=== PATIENT | male | born 1990 | race Caucasian/White ===

== ENCOUNTER 2021-05-04 15:44 | Inpatient (IN) | payer OTHER, SELFPAY ==
--- NOTE | ~2021-05-04 | CT_ITS ---
EXAMINATION: CT head/brain wo con CLINICAL INFORMATION: Reason for Exam change in vision COMPARISON: CT brain 11/15/2007 TECHNIQUE: Contiguous axial imaging was performed from the skull base to vertex without intravenous contrast. Sagittal and coronal reformatted images were obtained. This CT examination was performed using dose optimization techniques as appropriate, variously including the following: * Automated exposure control * Adjustment of mA and/or kV according to patient size (this includes techniques or standardized protocols for targeted exams where dose is matched to indication/reason for exam; i.e. extremities or head) Use of iterative reconstruction technique DLP: 642 mGy-cm FINDINGS: No acute osseous or soft tissue abnormality. The mastoid air cells and visualized portions of the paranasal sinuses are well aerated. Subcortical focal hypodensity in the right occipital lobe new from prior. No abnormal mass effect or midline shift is seen. Andre to white matter differentiation is well preserved. No extra-axial fluid collections are identified. No hydrocephalus. No significant volume loss. There is no abnormal attenuation within the brain parenchyma. CT/CT head/brain wo con IMPRESSION: Subcortical focal hypodensity in the right occipital lobe new from prior, raising suspicion for ischemic infarct, however recommend MR brain with and without contrast to ensure no discrete underlying focal parenchymal lesion. The findings and recommendations were discussed with Anca Guaman MD by telephone at 05/04/2021 11:01 PM and it was ascertained that the content and urgency of the report was understood at the time of direct communication.
--- NOTE | ~2021-05-04 | MR_ITS ---
MR BRAIN WITHOUT AND WITH CONTRAST CLINICAL INFORMATION: Vision changes. Head CT positive. COMPARISON: Head CT and CTA head and neck 05/04/2021. TECHNIQUE: Multiplanar, multisequence MRI of the brain was obtained before and after the intravenous administration of 8 mL Gadavist. FINDINGS: There is an acute infarct within the right occipital lobe measuring 1.6 cm. There is some gyriform enhancement in this location presumably related to blood brain barrier breakdown should be followed with 6-8 weeks to document resolution. Cytotoxic edema within the infarct results in local cerebral sulcal effacement. There is no hemorrhagic transformation. There is no hydrocephalus, extra-axial surface collection, or herniation. The major flow voids at the skull base are preserved. The midline structures are normal. The cerebellar tonsils are normally positioned. The cerebellum and brainstem are normal. The craniocervical junction is normal. Osseous marrow signal intensity is homogenous. The visualized soft tissues are unremarkable. MR/MR head/brain wo/w con IMPRESSION: There is an acute infarct within the right occipital lobe measuring 1.6 cm. There is some gyriform enhancement in this location presumably related to blood brain barrier breakdown that should be followed with 6-8 weeks to document resolution. Cytotoxic edema within the infarct results in local cerebral sulcal effacement. There is no hemorrhagic transformation.
--- NOTE | ~2021-05-04 | CT_ITS ---
EXAMINATION: CTA OF THE HEAD/NECK CLINICAL INFORMATION: Occipital stroke. COMPARISON: CT from 05/04/2021. TECHNIQUE: A routine non contrast head CT was performed earlier in the evening. This is followed by a 70 mL bolus of Omnipaque 350. Subsequent multidetector helical imaging was performed of the head and neck. Delayed post contrast imaging was also performed through the head. Multiplanar reformats and MIP were also obtained. Internal carotid artery stenoses are assessed in accordance with NASCET criteria unless otherwise indicated. This CT examination was performed using dose optimization techniques as appropriate, variously including the following: *Automated exposure control *Adjustment of mA and/or kV according to patient size (this includes techniques or standardized protocols for targeted exams where dose is matched to indication/reason for exam; i.e. extremities or head) *Use of iterative reconstruction technique DLP: 1493 mGy-cm. FINDINGS: CT HEAD: There is no evidence of acute intracranial hemorrhage. No abnormal mass effect or midline shift is seen. The subtle area of hypoattenuation in the right occipital lobe is again noted as seen on the recent prior noncontrast CT. No extra-axial fluid collections are identified. No suspicious leptomeningeal or parenchymal enhancement on the post-contrast images. No hydrocephalus. No significant volume loss. The osseous structures and soft tissues are normal. The mastoid air cells and visualized portions of the paranasal sinuses are well aerated. CTA NECK: The aortic arch is of normal caliber and the origins of the great vessels are patent without evidence of significant stenosis. 4 vessel branching configuration of the aortic arch with the left vertebral artery originating third from the arch. The cervical portion of the vertebral arteries are patent bilaterally. No luminal irregularities in the common carotid arteries and the carotid bifurcations are patent bilaterally. The cervical portion of the internal carotid arteries are of normal caliber. The laryngeal structures and pharyngeal mucosal spaces are unremarkable. The oral cavity appears normal. The parotid and submandibular glands are normal. No pathologically enlarged lymph nodes. The thyroid gland is unremarkable. The lung apices are clear without evidence of pneumothorax. Spinal alignment is maintained. CTA HEAD: The intradural portion of the vertebral arteries are of normal caliber. The basilar, superior cerebellar, and posterior communicating arteries are patent. The posterior, middle, and anterior cerebral arteries are of normal caliber without evidence of significant luminal irregularity. No definite intracranial aneurysms. CT/CT angio head neck IMPRESSION: 1. No acute vascular abnormality. No large vessel occlusion. 2. Unchanged appearance on the head CT. Subtle area of hypoattenuation in the right occipital lobe. This is nonspecific. As previously suggested, this can be further evaluated with MRI.
[2021-05-04 16:32] VITALS: BP 130/89; PULSE 93; RESP 16; TEMP 36.8; O2SAT 97; BMI 26.6
[2021-05-04 18:21] LABS: Anion Gap 12 (12-20); Blood Urea Nitrogen 12 mg/dL (9-16); Calcium 9.8 mg/dL (8.4-10.2); Carbon Dioxide 28 mmol/L (22-29); Chloride 105 mmol/L (96-108); Creatinine Clr Calc Pharmacy 115.5; Estimated Glomerular Filt Rate > 60; Glucose Random 95 mg/dL (60-115); Potassium 4.2 mmol/L (3.3-5.1); Sodium 141 mmol/L (135-145)
[2021-05-04 18:24] LABS: Hematocrit 48.7 % (42.0-52.0); Hemoglobin 16.5 g/dl (14.0-18.0); Mean Corpuscular HGB Conc 33.9 g/dl (31.0-36.0); Mean Corpuscular Hemoglobin 28.1 pg (27.0-33.0); Mean Platelet Volume 10.9 fL (9.4-12.4); Red Blood Count 5.87 X10*6/uL (4.60-5.80)
[2021-05-04 18:28] LABS: WBC ABN SCTR FOR CBC 1
[2021-05-04 18:46] LABS: White Blood Count 7.5 X10*3/uL (4.8-10.8)
[2021-05-04 18:48] LABS: Atypical Lymph Absolute Manual 0.1 x10*3/uL; Atypical Lymphs Percent Manual 1 % (0-6); Basophils Abs Manual 0.1 X10*3/uL (0.0-0.2); Basophils Percent Manual 1 % (0-2); Eosinophils Absolute Manual 0.6 X10*3/uL (0.0-0.4); Eosinophils Percent Manual 8 % (0-4); Lymphocytes Absolute Manual 2.2 X10*3/uL (1.2-4.9); Lymphocytes Percent Manual 29 % (20-40); Monocytes Absolute Manual 0.5 X10*3/uL (0.1-1.2); Monocytes Percent Manual 7 % (2-11); Neutrophils Percent Manual 54 % (45-73); Platelet Estimate NORMAL (NORMAL); Platelet Morphology Comment NORMAL; RBC Morphology NORMAL
[2021-05-04 18:49] LABS: Neutrophils Absolute Manual 4.1 X10*3/uL (2.0-8.3)
[2021-05-04 22:07] VITALS: BP 125/86; PULSE 79; RESP 16; TEMP 36.7; O2SAT 99
--- NOTE | 2021-05-04 22:08 | ED.EYEPROB ---
HPI - Eye Problem General Chief complaint: Eye Problems Stated complaint: blind spot on both eyes Time Seen by Provider: 05/04/21 22:03 History of Present Illness HPI Narrative: Patient is a 31-year-old male with a history of having change in vision since Saturday. Patient claimed there is a loss of visual field from 9-11 o'clock position in both eyes. It seemed dark. Patient had had 1 episode of possible ocular migraine in the past. Has no history of diabetes, hypertension, high cholesterol, smoking, [place]. the visual loss occurs even with closing 1 eye or the other. It is in the exact same location. It has the same visual disturbance. Patient denies any focal weakness. There is no difficulty with balance. Ambulates with a normal gait per family. No focal weakness in any of the extremities. No change in speech. No facial weakness. Related Data Allergies Allergy/AdvReac Type Severity Reaction Status Date / Time No Known Allergies Allergy Verified 05/04/21 16:32 Review of Systems Review of Systems: No fever no chills no chest pain or shortness of breath no nausea no vomiting patient is vaccinated Yes all other systems are reviewed and are negative [facility] Past Medical History Attestation statement: The following information was validated with the patient. Medical History No known health problems Social History Social History Advance Directives: No Physical Exam Vital Signs: Vital Signs: Last Vital Signs Temp 98.0 F 05/04/21 22:07 Pulse 94 05/04/21 23:12 Resp 16 05/04/21 23:12 BP 122/97 H 05/04/21 23:12 Pulse Ox 99 05/04/21 23:12 BMI result Body Mass Index 26.6 Appearance: Alert. Oriented X3. No acute distress. Eyes: Pupils equal, round and reactive to light. ENT: Pharynx normal. Neck: Normal inspection. Neck supple. No lymph nodes noted. No crepitus CVS: Normal heart rate and rhythm. Pulses normal. Normal S1 and S2 Respiratory: No respiratory distress. Breath sounds normal. No Wheezing. No rales Abdomen: Soft and nontender. No rigidity. No distention. good BS x4 Skin: Skin warm and dry. Normal skin color. Normal skin turgor. Extremities: No lower extremity edema. Neurovascular intact to all extremities. No Lacerations. No Rash Neuro: Oriented X 3. No motor deficit. No sensory deficit. Moving all extermities. No slurred speech NIH Stroke Scale Internal: Initial- Upon Arrival Time: 22:11 Level of Consciousness: Alert Level of Consciousness Questions: Answers both questions correctly Level of Consciousness Commands: Performs both tasks correctly Best Gaze: Normal Visual: No visual loss Facial Palsy: Normal Motor Arm (Right): No drift Motor Arm (Left): No drift Motor Leg (Right): No drift Motor Leg (Left): No drift Limb Ataxia: Absent Sensory: Normal Best Language: No aphasia Dysarthia: Normal Extinction and Inattention: No abnormality Score: 0 MDM - Eye Problem MDM Narrative Medical decision making narrative: Patient actually went to see an pastry mixer last week after an episode of possible ocular migraine. The exam is grossly normal. Patient did not have any eye issues in the past. Intra-ocular pressure was 10 on the right 11 on the left there is no evidence for glaucoma. Patient has gross visual acuity is intact will document a more precise 1. Neurologically intact. There is no signs of cerebella issue noted. NIH stroke scale was 0. However given possible posterior circulation issues. In a stroke scales not exactly accurate. However patient does not have any balance issue. Przpyr-mo-asfz was perfectly intact. This does make it less likely it is a cerebellar issue. Will start with a CT scan as it is 10 30 at night. Unable to obtain an MRI. MRI leaves at 20:30. CT scan of the head showed a lesion in the occipital area consistent with a CVA. Patient's symptoms started 3 days ago. With an apparent lesion noted on CT scan. Patient is out of range for tPA. Not a candidate for endovascular intervention. Discussed the finding with patient. Case discussed with hospitalist team. Patient is to be admitted. A CTA was ordered. Medical Records Attestation: I reviewed the patient's medical records. Lab Data Result diagrams: 05/04/21 18:01 05/04/21 18:01 Labs: Lab Results 05/04/21 05/04/21 Range/Units 18:01 18:01 WBC 7.5 (4.8-10.8) X10*3/uL RBC 5.87 H (4.60-5.80) X10*6/uL Hgb 16.5 (14.0-18.0) g/dl Hct 48.7 (42.0-52.0) % MCV 83.0 (80.0-98.0) fL MCH 28.1 (27.0-33.0) pg MCHC 33.9 (31.0-36.0) g/dl RDW 13.0 (11.0-16.0) % Plt Count TNP MPV 10.9 (9.4-12.4) fL Immature Gran % (Auto) Cancelled Neut % (Auto) Cancelled Lymph % (Auto) Cancelled [place] % (Auto) Cancelled Eos % (Auto) Cancelled Baso % (Auto) Cancelled Lymph # (Auto) Cancelled [place] # (Auto) Cancelled Eos # (Auto) Cancelled Baso # (Auto) Cancelled Abs Immat Gran (auto) Cancelled Absolute Neuts (auto) Cancelled Absolute Nucleated RBC 0.000 (0.0-0.012) X10*3/uL Nucleated RBC % (auto) 0.0 (0.0-0.2) /100WBC Neutrophils % (Manual) 54 (45-73) % Lymphocytes % (Manual) 29 (20-40) % Atypical Lymphs % (Man) 1 (0-6) % Monocytes % (Manual) 7 (2-11) % Eosinophils % (Manual) 8 H (0-4) % Basophils % (Manual) 1 (0-2) % Abs Neuts (Manual) 4.1 (2.0-8.3) X10*3/uL Lymphocytes # (Manual) 2.2 (1.2-4.9) X10*3/uL Atyp Lymphs # (Manual) 0.1 x10*3/uL Monocytes # (Manual) 0.5 (0.1-1.2) X10*3/uL Eosinophils # (Manual) 0.6 H (0.0-0.4) X10*3/uL Basophils # (Manual) 0.1 (0.0-0.2) X10*3/uL Platelet Estimate NORMAL (NORMAL) Plt Morphology Comment NORMAL RBC Morphology NORMAL Sodium 141 (135-145) mmol/L Potassium 4.2 (3.3-5.1) mmol/L Chloride 105 (96-108) mmol/L Carbon Dioxide 28 (22-29) mmol/L Anion Gap 12 (12-20) BUN 12 (9-16) mg/dL Creatinine 0.88 (0.5-1.4) mg/dL Estim Creat Clear Calc 115.5 Estimated GFR > 60 Random Glucose 95 (60-115) mg/dL Calcium 9.8 (8.4-10.2) mg/dL Discharge Plan Discharge Clinical Impression: Acute CVA (cerebrovascular accident) Patient Disposition: Admitted As Inpatient
--- NOTE | 2021-05-04 23:02 | ECG_ITS ---
Test Reason : STROKE Blood Pressure : / mmHG Vent. Rate : 082 BPM Atrial Rate : 082 BPM P-R Int : 144 ms QRS Dur : 088 ms QT Int : 374 ms P-R-T Axes : 037 066 015 degrees QTc Int : 436 ms Normal sinus rhythm Normal ECG No previous ECGs available Referred By: Anca Guaman Electronically Signed By:SANDRA RUSH
[2021-05-04] MEDS: diphenhydrAMINE HCL 50 MG/ML VIAL IVPUSH (23:04)
[2021-05-04] MEDS: Metoclopramide HCl 10 MG/2 ML VIAL IVPUSH (23:04)
[2021-05-04] MEDS: Ketorolac Tromethamine 30 MG/ML VIAL IVPUSH (23:04)
--- NOTE | 2021-05-04 23:08 | PM.IMHP ---
History of Present Illness Date of Service: 05/04/21 Chief Complaint: Blind spots This is a 31-year-old male with no significant past medical history who presents to the hospital with complaints of blind spots. Patient reports that he initially experienced visual changes that include visual aura, he saw seeing swiggly colorful lines about a week ago that occurred twice, lasting 10-15 minutes. He reports no associated headache, numbness, tingling, weakness with this episodes. 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 He then noticed weakness in his right arm that lasted few minutes and resolved spontaneously. But about 2 days ago he woke up with blind spots in his vision the did not resolve. He called his primary care physician, who scheduled him for CT of the head but then patient developed headache as well as neck pain and therefore he was asked to come to the hospital for further evaluation. He at this time denies any numbness, tingling, weakness in the arms or legs, no speech changes, no drooling of the face, no numbness in his face. On arrival to the ED patient hemodynamically stable with no significant abnormal vitals Labs are significant for WBC count of 7.5, hemoglobin of 16.5, hematocrit 40.7, otherwise unremarkable Head CT shows subcortical focal hypodensity in the right occipital lobe new from prior, raising suspicious for ischemic infarct, MRI is recommended to ensure no discrete underlying focal parenchymal lesion. Patient will be admitted for further management Review of Systems Review of Systems: Yes all other systems are reviewed and are negative [facility] Medical History (Updated 05/05/21 @ 06:04 by Ivanna Del Toro MD) No known health problems Family History (Updated 05/05/21 @ 06:00 by Ivanna Del Toro MD) Other No family history of cerebrovascular accident (CVA) Pertinent family history: No family history of autoimmune disease Surgical History (Updated 05/05/21 @ 06:01 by Ivanna Del Toro MD) No pertinent past surgical history Social History (Updated 05/05/21 @ 06:01 by Ivanna Del Toro MD) Alcohol intake: current Patient Tobacco Use Status: Never used Tobacco Use of substances other than those prescribed or required for medical reasons: No Advance Directives: No Meds Allergies Allergy/AdvReac Type Severity Reaction Status Date / Time No Known Allergies Allergy Verified 05/04/21 16:32 Home Medications Medication Instructions Recorded Confirmed Last Taken Type omeprazole 20 mg capsule,delayed 1 cap PO DAILY 05/05/21 05/05/21 05/05/21 History release 1 sertraline 25 mg tablet 1 tab PO BID 05/05/21 05/05/21 05/05/21 History 1800 Physical Exam Vital Signs and Narrative: Vital Signs: Last Vital Signs Temp 98.0 F 05/04/21 22:07 Pulse 79 05/04/21 22:07 Resp 16 05/04/21 22:07 BP 125/86 05/04/21 22:07 Pulse Ox 99 05/04/21 22:07 BMI result Body Mass Index 26.6 Const: General: cooperative and no acute distress Orientation/consciousness: patient oriented x3 Eyes: Other: Horizontal nystagmus Pupils: Equal, round and reactive pupils present Resp: Effort & Inspection: normal respiratory effort, able to speak in complete sentences and abnormal respiratory pattern Auscultation: clear to auscultation bilaterally Cardio: Rate: regular rate Rhythm: regular rhythm GI: Palpation (GI): Soft to palpation Auscultation: normal bowel sounds Skin: General skin exam: no rashes or lesions noted Neuro: Other: Strength is 5/5 in all extremities Crescencio cranial exam is patient did not seem to have any visual deficits, cranial nerves 2-12 intact. General: patient oriented x3 Cranial nerves: Yes Equal, round and reactive pupils present Cognition (Neuro): normal cognition Extrem: General: Yes normal to inspection and Yes no pedal edema Results Labs CBC and Chem 7: 05/04/21 18:01 05/04/21 18:01 Labs: Laboratory Results - last 24 hr 05/04/21 05/04/21 18:01 18:01 MCV 83.0 MCH 28.1 MCHC 33.9 RDW 13.0 Plt Count TNP MPV 10.9 Immature Gran % (Auto) Cancelled Neut % (Auto) Cancelled Lymph % (Auto) Cancelled [place] % (Auto) Cancelled Eos % (Auto) Cancelled Baso % (Auto) Cancelled Lymph # (Auto) Cancelled [place] # (Auto) Cancelled Eos # (Auto) Cancelled Baso # (Auto) Cancelled Abs Immat Gran (auto) Cancelled Absolute Neuts (auto) Cancelled Absolute Nucleated RBC 0.000 Nucleated RBC % (auto) 0.0 Neutrophils % (Manual) 54 Lymphocytes % (Manual) 29 Atypical Lymphs % (Man) 1 Monocytes % (Manual) 7 Eosinophils % (Manual) 8 H Basophils % (Manual) 1 Abs Neuts (Manual) 4.1 Lymphocytes # (Manual) 2.2 Atyp Lymphs # (Manual) 0.1 Monocytes # (Manual) 0.5 Eosinophils # (Manual) 0.6 H Basophils # (Manual) 0.1 Platelet Estimate NORMAL Plt Morphology Comment NORMAL RBC Morphology NORMAL Anion Gap 12 Estim Creat Clear Calc 115.5 Estimated GFR > 60 Random Glucose 95 Calcium 9.8 Imaging Radiologist's Impressions: Impressions Head CT 05/04/21 22:35 IMPRESSION: Subcortical focal hypodensity in the right occipital lobe new from prior, raising suspicion for ischemic infarct, however recommend MR brain with and without contrast to ensure no discrete underlying focal parenchymal lesion. The findings and recommendations were discussed with Anca Guaman MD by telephone at 05/04/2021 11:01 PM and it was ascertained that the content and urgency of the report was understood at the time of direct communication. Assessment and Plan (1) [place]: Status: Acute (2) Abnormal head CT: Status: Acute (3) Visual changes: Status: Acute Plan 31-year-old male with no significant past medical history presents to the hospital with abnormal visual changes including blind spots found to have an abnormal CT # scotoma - likely EMS, versus CVA less likely versus abnormal brain lesion less likely - given the abnormal CT findings, patient's age, his noncontributing past medical history MS is a very Likely diagnosis - will obtain a brain MRI - neurology consulted # abnormal head CT - showing subcortical focal hyperdensity in the right occipital lobe concerning for infarct versus other etiology - at this time will obtain MRI and neurology consult DVT prophylaxis: Lovenox Quality Stroke Does the patient have a stroke diagnosis?: No VTE Prior VTE?: No VTE Risk Level:: Medical - moderate - high VTE Device Contraindication: Treatment Not Indicated VTE Drug Contraindication: N/A - Med Ordered
[2021-05-04 23:12] VITALS: BP 122/97; PULSE 94; RESP 16; O2SAT 99
[2021-05-04 23:49] LABS: COVID-19 Test Negative (Negative)
[2021-05-04] MEDS: iohexoL 350 MG/ML 100 ML INFUS..BTL 70 ML IV (23:55)
[2021-05-05] VITALS (8 sets, daily range): BP systolic 103–125; BP diastolic 71–83; PULSE 68–85; RESP 12–20; TEMP 36.8; O2SAT 96–99
[2021-05-05] MEDS: Aspirin Enteric Coated 81 MG TABLET.DR PO ×2 (00:30→07:56)
[2021-05-05 06:36] LABS: MANUAL DIFF FLAG NO
[2021-05-05 06:48] LABS: Basophils Absolute Auto 0.1 X10*3/uL (0.0-0.2); Basophils Percent Auto 0.7 % (0-2); Eosinophils Absolute Auto 0.1 X10*3/uL (0.0-0.4); Eosinophils Percent Auto 0.8 % (0-4); Hematocrit 46.9 % (42.0-52.0); Hemoglobin 15.2 g/dl (14.0-18.0); Imm Gran Abs Auto 0.04 X10*3/uL (0.00-0.03); Imm Gran Pct Auto 0.5 % (0.0-0.4); Lymphocytes Absolute Auto 2.2 X10*3/uL (1.2-4.9); Lymphocytes Percent Auto 29.4 % (20-40); Mean Corpuscular HGB Conc 32.4 g/dl (31.0-36.0); Mean Corpuscular Hemoglobin 27.4 pg (27.0-33.0); Mean Corpuscular Volume 84.5 fL (80.0-98.0); Mean Platelet Volume 11.3 fL (9.4-12.4); Monocytes Absolute Auto 0.8 X10*3/uL (0.1-1.2); Monocytes Percent Auto 10.1 % (2-11); Neutrophils Absolute Auto 4.4 x10*3/uL (2.0-8.3); Neutrophils Percent Auto 58.5 % (45-73); Platelet Count 279 X10*3/uL (160-400); Red Blood Count 5.55 X10*6/uL (4.60-5.80); Red Cell Distribution Width 12.9 % (11.0-16.0); White Blood Count 7.5 X10*3/uL (4.8-10.8)
[2021-05-05 06:53] LABS: Anion Gap 11 (12-20); Blood Urea Nitrogen 15 mg/dL (9-16); Calcium 9.6 mg/dL (8.4-10.2); Carbon Dioxide 30 mmol/L (22-29); Chloride 105 mmol/L (96-108); Creatinine Clr Calc Pharmacy 105.8; Estimated Glomerular Filt Rate > 60; Glucose Random 89 mg/dL (60-115); Potassium 4.3 mmol/L (3.3-5.1); Sodium 142 mmol/L (135-145)
[2021-05-05 06:55] LABS: Cholesterol 169 mg/dL; HDL Cholesterol 32 mg/dL; LDL Cholesterol Calculated 117 mg/dl; Triglycerides 103 mg/dL
--- NOTE | 2021-05-05 07:14 | PHA.MEDREC ---
Pharmacy Consult ? Medication Reconciliation Pharmacy has reviewed the medication reconciliation completed by HANK Ojeda. There are no remarkable issues. Maryuri Richter, JudahD
[2021-05-05] MEDS: LORazepam 1 MG TABLET PO (07:55)
[2021-05-05] MEDS: Omeprazole 20 MG CAPSULE.DR PO (07:56)
[2021-05-05] MEDS: Sertraline HCL 25 MG TABLET PO (07:56)
[2021-05-05] MEDS: Atorvastatin Calcium 80 MG TABLET PO (07:56)
--- NOTE | 2021-05-05 10:00 | CA_ITS ---
Transthoracic Echocardiogram Patient (Last, First, Middle): Dmitriy Lindsay, Gender: Male Date of : 1990 Age: 31 Procedure Date: 05/05/2021 Procedure Type: Transthoracic Echocardiogram Location: ER Height: 172.72 cm Weight: 79.38 kg BSA: 1.93 m2 Heart Rate: bpm BP: 103 / 73 mmHg It Sales Representative: AVINASH Referring MD: Ivanna Del Toro MD Symptoms: cva? r/o fopraman ovale? Study Quality: Good ECG Rhythm: Sinus Conclusions: - The left ventricular systolic function is normal. The calculated ejection fraction is 59% by biplane method. - Bubble study negative during rest and valsalva. - No obvious valvular pathology seen on this study. Findings Left Ventricle Normal left ventricular cavity size. There is normal left ventricular wall thickness. The left ventricular systolic function is normal. The calculated ejection fraction is 59% by biplane method. There is no evidence of regional wall motion abnormalities. Diastolic function is normal for age. Right Ventricle Normal right ventricular cavity size and systolic function. Atria Both atria are normal in size. Bubble study negative during rest and valsalva. Aortic Valve There is a normal trileaflet aortic valve. There is no aortic valve stenosis. There is no aortic valve regurgitation. Mitral Valve The mitral valve appears normal. There is no mitral valve regurgitation. There is no mitral valve stenosis. Pulmonic Valve The pulmonic valve was not well visualized. Tricuspid Valve Normal tricuspid valve structure. There is trace tricuspid valve regurgitation. The pulmonary artery systolic pressure is normal. Great Vessels The aortic annulus, sinuses of valsalva, asc aorta, and aortic arch are normal in size. Venous The inferior vena cava is normal in size and collapses greater than 50% with inspiration. Pericardium/Pleural There is no evidence of pericardial effusion. Prior Study Comparison No prior study available for comparison. Recommendations, Care & Conclusions No obvious valvular pathology seen on this study. Measurements 2D Linear Measurements IVSd: 1.01 0.6-0.9/0.6-1.0 cm LVIDd: 3.84 3.9-5.3/4.2-5.9 cm LVIDd Index: 1.99 2.4-3.2/2.2-3.1 cm/m2 LVIDs: 2.59 2.0-3.6 cm LVPWd: 1.00 0.7-1.1 cm Ao Root: 3.40 2.1-3.5 cm LA Diam: 2.90 2.7-3.8/3.0-4.0 cm LAIDs Index: 1.50 1.5-2.3 cm/m2 LV Mass: 149.32 67-162/88-224 g LV Mass Index: 77.37 43-95/49-115 g/m2 LVOT Diam: 2.00 3.0+(-)1.3 cm 2D Systolic Function EF 4C: 60.30 >55% EF 2C: 60.70 >55% EF BiP: 58.70 >55% Mitral Valve MV Pk E: 0.57 MV PK A: 0.60 MV Decel Time: 227.00 E/A: 0.90 E'Lateral: 9.90 E'Medial: 7.94 E/E' Med: 7.10 E/E' Lat: 5.70 PHT: 66.00 MVA PHT: 3.33 Decel Mcintosh: 2.49 Aortic Valve AoV Pk Yazan: 1.02 AoV Mn Yazan: 0.83 AoV VTI: 0.20 AoV Pk Grad: 4.00 Aov Mn Grad: 3.00 LEON Cont.VTI: 2.41 LVOT LVOT Pk Yazan: 0.94 LVOT Mn Yazan: 0.59 LVOT VTI: 0.16 LVOT Pk Grad: 4.00 LVOT Mn Grad: 2.00 LVOT Diam: 2.00 LVOT Area: 3.14 Diastolic Function MV Pk E: 0.57 MV Pk A: 0.60 E/A: 0.90 E'Medial: 7.94 E/E' Med: 7.10 E' Laterial: 9.90 E/E' Lat: 5.70 Right Ventricle TAPSE (mm): 20.00 TVS' Yazan: 12.10 Tricuspid Valve TR Pk Yazan: 1.83 TR Pk Grad: 13.00 RA Press: 3.00 RVSP: 16.00 Great Vessels Aorta Ao Root-2D: 3.40 2.0-3.7 cm Ao Asc: 2.90 2.1-3.4 cm Ao Arch: 2.10 Updated in Other Vendor System with Status of Final Brad Hou MD electronically signed on 05/05/2021 1:21:39 PM with status of Final
--- NOTE | 2021-05-05 10:09 | MHC.STROKE ---
WALK-IN 05/04/21 AT 1544 C/O VISUAL DISTURBANCE SINCE 05/01/21, WORSE ON 05/02/21. LKW 05/01/21. SEEN BY DR ROSE, CT AND CTA H/N DONE, NO BLEED, SUSPECTING RIGHT OCCIPITAL ISCHEMIC STROKE, PASSED SWALLOW SCREEN. STROKE ORDERS IN PLACE. MRI CONFIRMED RIGHT OCCIPITAL STROKE, I SPOKE WITH DR AARON AND HE IS REVIEWING THE IMAGES. HE WILL BE SPEAKING WITH DR LUONG. RECOMMENDING ECHO WITH [facility], DRUG SCREEN, CONSIDER HYPERCOAG WORK WITH [facility]. STROKE EDUCATION IS BEING INITIATED, I DISCUSSED THIS WITH THE ED STAFF, THEY WILL REVIEW THE BOOKLET WITH HIM ONCE THE PROVIDER HAS DISCUSSED THE DIAGNOSIS. I DID CONFIRM WITH CARDIOOGY THAT HE IS HAVING THE ECHO WITH [facility] AT 10:30 THIS MORNING. I WILL CONTINUE TO FOLLOW.
--- NOTE | 2021-05-05 13:28 | PM.DS ---
DS: Providers Provider Date of Service: 05/05/21 Date of admission: 05/04/21 23:05 Date of discharge: 05/05/21 Primary care physician: Mauricio Isabel MD Consults: 05/04/21 23:05 Consult to Neurology Routine Consulting Provider: [facility] Reason for consultation: stroke Has provider been notified: No DS: Diagnosis Discharge Diagnosis (1) [place]: Status: Acute (2) Abnormal head CT: Status: Acute (3) Visual changes: Status: Acute DS: Summary Hospital Course Hospital Course: This is a 31-year-old male with no significant past medical history who presents to the hospital with complaints of blind spots.? Patient reports that he initially experienced visual changes that include visual aura, he saw seeing swiggly colorful lines about a week ago that occurred twice, lasting 10-15 minutes.? He reports no associated headache, numbness, tingling, weakness with this episodes.? presented to his local [facility], and he was told that he has ocular migraines and to manage conservatively.? He then noticed weakness in his right arm that lasted few minutes and resolved spontaneously.? But about 2 days ago he woke up with blind spots in his vision the did not resolve.? He called his primary care physician, who scheduled him for CT of the head but then patient developed headache as well as neck pain and therefore he was asked to come to the hospital for further evaluation. He at this time denies any numbness, tingling, weakness in the arms or legs, no speech changes, no drooling of the face, no numbness in his face.? Hospital Course in the ER, was given high-dose statin and aspirin. CT demonstrateda faint lesion in the right occipital region. Subsequent MRI was done which demonstrated acute infarct within the right occipital lobe measuring 1.6 cm. There was no hemorrhagic transformation. 2D echo was done with bubble study which was essentially unremarkable. Case was discussed with Neurology. Patient will be sent home to continue aspirin and high-dose statin. He will follow-up with PCP for neural referral for further imaging and treatment. All his questions are answered Time Spent with Patient Time attestation: Total time spent providing and/or coordinating discharge services: Discharge coordination time: Greater than 30 minutes Quality: Stroke Does the patient have a stroke diagnosis?: Yes Reason for No Anti-thrombotic at DC: N/A - Med Ordered Reason for No Anticoagulant at DC: N/A - Med Ordered Reason Not Initiating IV-Tpa: Not indicated Reason for No Anti-thrombotic by Day Two: N/A - Med Ordered Reason for No Statin at DC: N/A - Med Ordered Physical Exam Vital Signs: Vital Signs: Last Vital Signs Temp 98.2 F 05/05/21 05:13 Pulse 85 05/05/21 11:30 Resp 20 05/05/21 11:30 BP 125/82 05/05/21 11:30 Pulse Ox 97 05/05/21 11:30 BMI result Body Mass Index 26.6 awake alert orient Resp: Other: clear to auscultation bilaterally no rales rhonchi or wheezes Cardio: Other: no S4; positive S1-S2; no S3 murmurs or gallops Neuro: Other: cranial nerves 2-12 grossly intact as tested save visual field cuts as described previously. Motor is 5/5 all extremities. Sensation is intact. Cognition is appropriate. Gait steady Extrem: Other: no edema DS: Data Data Completed and Pending Labs on day of discharge: Laboratory Results - last 24 hr 05/04/21 05/04/21 05/04/21 18:01 18:01 23:28 WBC 7.5 RBC 5.87 H Hgb 16.5 Hct 48.7 MCV 83.0 MCH 28.1 MCHC 33.9 RDW 13.0 Plt Count TNP MPV 10.9 Immature Gran % (Auto) Cancelled Neut % (Auto) Cancelled Lymph % (Auto) Cancelled Towner % (Auto) Cancelled Eos % (Auto) Cancelled Baso % (Auto) Cancelled Lymph # (Auto) Cancelled Towner # (Auto) Cancelled Eos # (Auto) Cancelled Baso # (Auto) Cancelled Abs Immat Gran (auto) Cancelled Absolute Neuts (auto) Cancelled Absolute Nucleated RBC 0.000 Nucleated RBC % (auto) 0.0 Neutrophils % (Manual) 54 Lymphocytes % (Manual) 29 Atypical Lymphs % (Man) 1 Monocytes % (Manual) 7 Eosinophils % (Manual) 8 H Basophils % (Manual) 1 Abs Neuts (Manual) 4.1 Lymphocytes # (Manual) 2.2 Atyp Lymphs # (Manual) 0.1 Monocytes # (Manual) 0.5 Eosinophils # (Manual) 0.6 H Basophils # (Manual) 0.1 Platelet Estimate NORMAL Plt Morphology Comment NORMAL RBC Morphology NORMAL Sodium 141 Potassium 4.2 Chloride 105 Carbon Dioxide 28 Anion Gap 12 BUN 12 Creatinine 0.88 Estim Creat Clear Calc 115.5 Estimated GFR > 60 Random Glucose 95 Calcium 9.8 Triglycerides Cholesterol LDL Cholesterol, Calc HDL Cholesterol COVID-19 ([facility]) Negative COVID-19 Clin Com See Note 05/05/21 05/05/21 05/05/21 06:05 06:05 06:05 WBC 7.5 RBC 5.55 Hgb 15.2 Hct 46.9 MCV 84.5 MCH 27.4 MCHC 32.4 RDW 12.9 Plt Count 279 MPV 11.3 Immature Gran % (Auto) 0.5 H Neut % (Auto) 58.5 Lymph % (Auto) 29.4 Towner % (Auto) 10.1 Eos % (Auto) 0.8 Baso % (Auto) 0.7 Lymph # (Auto) 2.2 Towner # (Auto) 0.8 Eos # (Auto) 0.1 Baso # (Auto) 0.1 Abs Immat Gran (auto) 0.04 H Absolute Neuts (auto) 4.4 Absolute Nucleated RBC 0.000 Nucleated RBC % (auto) 0.0 Neutrophils % (Manual) Lymphocytes % (Manual) Atypical Lymphs % (Man) Monocytes % (Manual) Eosinophils % (Manual) Basophils % (Manual) Abs Neuts (Manual) Lymphocytes # (Manual) Atyp Lymphs # (Manual) Monocytes # (Manual) Eosinophils # (Manual) Basophils # (Manual) Platelet Estimate Plt Morphology Comment RBC Morphology Sodium 142 Potassium 4.3 Chloride 105 Carbon Dioxide 30 H Anion Gap 11 L BUN 15 Creatinine 0.96 Estim Creat Clear Calc 105.8 Estimated GFR > 60 Random Glucose 89 Calcium 9.6 Triglycerides 103 Cholesterol 169 LDL Cholesterol, Calc 117 HDL Cholesterol 32 COVID-19 ([facility]) COVID-19 Clin Com Discharge Plan Discharge Patient Disposition: Home, Self-Care Discharge Diagnosis: right occipital lobe infarct Referrals: Mauricio Isabel MD [Primary Care Provider] - 1 Week Discharge Medications: New atorvastatin 80 mg Tablet 80 mg PO DAILY Qty: 30 3RF aspirin [Aspirin Low Dose] 81 mg tablet,delayed release (DR/EC) 81 mg PO DAILY Qty: 30 3RF Continued sertraline 25 mg tablet 1 tab PO BID 0RF Rx Instructions: pt now takes 25mg bid omeprazole 20 mg capsule,delayed release(DR/EC) 1 cap PO DAILY 0RF Discharge Orders: Discharge Order (Routine); Ordered 05/05/21 Ordered By: Holden Taylor Stand Alone Forms: Patient Portal Discharge page Care Plan Goals: continue with daily aspirin and atorvastatin. Make an appointment with her PCP; you will need to follow up with Neurology and with your PCP for further imaging Health Concerns: important to be compliant with aspirin and statin therapy Plan of Treatment: PCP will book you within neurologist and follow-up imaging Assessment: as per discharge summary
--- NOTE | 2021-05-05 13:52 | MHC.CM.PN ---
Patient d/c'd home before being able to be seen by case management.
== END 2021-05-05 13:36 | disposition home or self-care (01) | DRG 45 ==
LOC: HO.ED 23:21 → HO.EDOVER 23:31
PROVIDERS: Admitting Provider Internal Medicine; Emergency Provider Emergency Medicine Emergency Medical Services; PCP Internal Medicine; Visit Provider Hospitalist
DX: I63.89 Other cerebral infarction (principal); H53.453 Other localized visual field defect, bilateral; Z79.82 Long term (current) use of aspirin; Z20.822 Contact with and (suspected) exposure to COVID-19; Z79.899 Other long term (current) drug therapy
CPT/HCPCS: 36415; 70450; 70496; 70498; 70553; 80048; 80061; 85007; 85025; 85027; 87635; 93005; 93306; 96374; 96375; 97161; 97165; 99285; A9585; J1200; J1885; J2765; Q9967